=== PATIENT | male | born 1970 | race Caucasian/White ===

== ENCOUNTER 2016-10-31 11:02 | Emergency (ER) | payer OTHER ==
[2016-10-31 11:19] VITALS: BP 128/79
--- NOTE | 2016-10-31 11:20 | ER Document Report ---
ED Medical Screen (RME) - General Stated Complaint: POSSIBLE FACE INJURY Notes: pt was at work at [employer], he was reaching up to take down a box when a 10lb mallet slid of the box and hit him in the nose and philtrum at rest, 3/5 in severity, states he has pain with palpation 4/5 in severity. able to open and close his jaw. no obvious deformities admits to nausea, headache yesterday, nasal bleeding, dizziness < 15 minutes denies LOC TRAVEL OUTSIDE OF THE [place] IN LAST 30 DAYS: No - Related Data Allergies/Adverse Reactions: No Known Allergies Allergy (Verified 10/31/16 11:17) Past Medical History - Past Medical History Cardiac Medical History: Reports: Hx Hypercholesterolemia, Hx Hypertension Endocrine Medical History: Reports: Hx Diabetes Mellitus Type 2, Hx Hypothyroidism. Denies: Hx Diabetes Mellitus Type 1 Musculoskeltal Medical History: Reports Hx Arthritis Past Surgical History: Reports: Hx Orthopedic Surgery - right shoulder; c4-c7 fusion - Immunizations Hx Diphtheria, Pertussis, Tetanus Vaccination: Yes
--- NOTE | 2016-10-31 12:09 | ER Document Report ---
ED Head/Face/Scalp Injury - General Mode of Arrival: Ambulatory Information source: Patient TRAVEL OUTSIDE OF THE [place] IN LAST 30 DAYS: No - HPI Patient complains to provider of: Injury Injury to: Face, Lip Location of problem: Lip Where: Work - [employer] Timing: Better Context: Other - Sledgehammer fell from above storage shelf Loss consciousness: No loss of consciousness Remembers: Injury, Coming to hospital - General Chief Complaint: Head Injury Stated Complaint: POSSIBLE FACE INJURY Notes: Patient is a 45-year-old male presenting to the emergency department after a sledgehammer a sledgehammer fell on his face at work ([employer]) yesterday. Patient states that it was swollen yesterday when it happened, but he didn't feel like he needed to come into the emergency department until he became nauseous a couple hours later. Today patient decided to come in for precautionary measures. Patient states that he is a little sore where the sledge hammer clipped him just below the nose, but other than that he is not experiencing any symptoms. (LESLIE ZIMMERMAN) - Related Data Allergies/Adverse Reactions: No Known Allergies Allergy (Verified 10/31/16 11:17) Past Medical History - General Information source: Patient - Social History Smoking Status: Current Some Day Smoker Cigarette use (# per day): No - Smokes cigars occasionally Chew tobacco use (# tins/day): No Frequency of alcohol use: Occasional Drug Abuse: None Lives with: Family Family History: Reviewed & Not Pertinent Patient has suicidal ideation: No Patient has homicidal ideation: No - Past Medical History Cardiac Medical History: Reports: Hx Hypercholesterolemia, Hx Hypertension Endocrine Medical History: Reports: Hx Diabetes Mellitus Type 2, Hx Hypothyroidism Musculoskeltal Medical History: Reports Hx Arthritis Past Surgical History: Reports: Hx Orthopedic Surgery - right shoulder; c4-c7 fusion - Immunizations Hx Diphtheria, Pertussis, Tetanus Vaccination: Yes Review of Systems - Review of Systems Constitutional: No symptoms reported EENT: No symptoms reported Cardiovascular: No symptoms reported Respiratory: No symptoms reported Gastrointestinal: See HPI, Nausea Genitourinary: No symptoms reported Male Genitourinary: No symptoms reported Musculoskeletal: See HPI, Other - Face Pain Skin: No symptoms reported Hematologic/Lymphatic: No symptoms reported Neurological/Psychological: No symptoms reported. denies: Lost consciousness -: Yes All other systems reviewed and negative Physical Exam - Vital signs Interpretation: Normal - General General appearance: Appears well, Alert - HEENT Head: Normocephalic, Tenderness - Upper teeth, upper lip, just below the nose tender to palpation. Eyes: Normal Pupils: PERRL Mouth/Lips: Normal. No: Dental fracture - Teeth are not loose. - Respiratory Respiratory status: No respiratory distress Chest status: Nontender Breath sounds: Normal Chest palpation: Normal - Cardiovascular Rhythm: Regular Heart sounds: Normal auscultation Murmur: No - Abdominal Inspection: Normal Distension: No distension Bowel sounds: Normal Tenderness: Nontender Organomegaly: No organomegaly - Back Back: Normal, Nontender - Extremities General upper extremity: Normal inspection, Nontender, Normal color, Normal ROM , Normal temperature General lower extremity: Normal inspection, Nontender, Normal color, Normal ROM , Normal temperature - Neurological Neuro grossly intact: Yes Cognition: Normal Mosier Coma Scale Eye Opening: Spontaneous Patricia Coma Scale Verbal: Oriented Patricia Coma Scale Motor: Obeys Commands Mosier Coma Scale Total: 15 Speech: Normal - Psychological Associated symptoms: Normal affect, Normal mood - Skin Skin Temperature: Warm Skin Moisture: Dry Skin Color: Normal - Vital signs Vitals: Temp Pulse Resp BP Pulse Ox 98.1 F 78 16 128/79 H 99 10/31/16 11:17 10/31/16 11:17 10/31/16 11:17 10/31/16 11:17 10/31/16 11:17 (TATE FREEMAN) (LESLIE ZIMMERMAN) Scribe Documentation - Scribe Written by Scribe:: KELLY HERNÁNDEZ 10/31/16 1208 Acting as scribe for: (TATE FREEMAN) (LESLIE ZIMMERMAN)
== END 2016-10-31 12:11 | disposition home or self-care (01) ==
LOC: ER 11:02
DX: S00.83XA Contusion of other part of head, initial encounter (principal); W20.8XXA Other cause of strike by thrown, projected or falling object, initial encounter; Y93.89 Activity, other specified; Y92.512 Supermarket, store or market as the place of occurrence of the external cause; Y99.0 Civilian activity done for income or pay; R11.0 Nausea; R51 Headache; F17.290 Nicotine dependence, other tobacco product, uncomplicated; I10 Essential (primary) hypertension; E11.9 Type 2 diabetes mellitus without complications
CPT/HCPCS: 70150; 99283